=== PATIENT | female | born 1980 | race Caucasian/White ===

== ENCOUNTER → 2020-02-08 10:27 | Outpatient (CLI) | payer OTHER, SELFPAY ==
--- NOTE | ~2020-02-08 | MM_ITS ---
EXAMINATION: MM screening [facility] BI w zahira HISTORY: Baseline screening mammogram TECHNIQUE: Craniocaudal and mediolateral oblique 3-D tomosynthesis images were obtained and synthetic 2-D images were generated. CAD analysis was submitted and interpreted. COMPARISON: None, baseline BREAST PARENCHYMAL COMPOSITION: The breasts are heterogeneously dense, which may obscure small masses . FINDINGS: There appear to be low-density, obscured masses in the upper outer quadrants of both breast s which could reflect cysts. No suspicious calcification or architectural distortion are identified. IMPRESSION: 1. Low-density masses in the upper outer quadrant of the breasts. 2. Additional mammographic views and possible breast ultrasound are recommended to evaluate for malig chichi and establish a baseline given that this is the first mammographic examination. BI-RADS Category 0: Incomplete: Needs additional imaging evaluation. Reviewed, dictated and finalized at location A. IMPRESSION: 1. Low-density masses in the upper outer quadrant of the breasts. 2. Additional mammographic views and possible breast ultrasound are recommended to evaluate for malignancy and establish a baseline given that this is the fir st mammographic examination. BI-RADS Category 0: Incomplete: Needs additional imaging evaluation.
== END ==
PROVIDERS: Visit Provider Obstetrics & Gynecology
DX: Z12.31 Encounter for screening mammogram for malignant neoplasm of breast (principal); R92.8 Other abnormal and inconclusive findings on diagnostic imaging of breast
CPT/HCPCS: 77063; 77067

== ENCOUNTER → 2020-02-24 09:22 | Outpatient (CLI) | payer OTHER, SELFPAY ==
--- NOTE | ~2020-02-24 | MMUS_ITS ---
EXAMINATION: MM diagnostic mammo BI, US breast BI limited HISTORY: Follow-up breast asymmetries TECHNIQUE: Additional 3-D tomosynthesis images of the breasts were performed and synthetic 2-D images were generated. CAD analysis was submitted and interpreted. High resolution bilateral breast ultraso und was performed. COMPARISON: 02/08/2020 BREAST PARENCHYMAL COMPOSITION: The breasts are heterogenously dense, which may obscure small masses. FINDINGS: MAMMOGRAPHIC FINDINGS: There are persistent nodular asymmetries in the lateral aspect of both breasts, although no discrete architectural distortion or suspicious calcifications. There is a 9 mm circumscribed mass in the uppe r outer quadrant of the right breast. There are 2 partially obscured masses in the upper outer quadra nt of the left breast. ULTRASOUND: Right breast ultrasound: At 11:00, 6 cm from the nipple, there is a cluster of microcysts, largest measuring 4 mm. At 10:00, 2 cm from the nipple there is a 6 mm cyst. At 10:00, 4 cm from the nipple, there is a 7 mm complicated cysts. At 9:00, 1 cm from the nipple, there is a 4 mm cyst. Left breast ultrasound: At 12:00, 4 cm from the nipple, there is a 6 mm complicated cyst. At 12:00, 3 cm from the nipple, the re is a 7 mm cyst. At 1:00, 2 cm from the nipple, there is a 3 mm cyst. At 2:00, 6 cm from the nipple , there is a 5 mm cyst. At 2:00, 4 cm from the nipple there is a 4 mm cyst. At 4:00, 2 cm from the ni pple, there is a cluster of cysts. IMPRESSION: 1. Multiple benign bilateral breast cysts corresponding to masses and asymmetry seen on mammogram. No evidence for malignancy in either breast. 2. Routine yearly screening mammogram and regular clinical breast examination are recommended. BI-RADS Category 2: Benign finding(s). Reviewed, dictated and finalized at location A. IMPRESSION: 1. Multiple benign bilateral breast cysts corresponding to masses and asymmetry seen on mammogram. No evidence for malignancy in either breast. 2. Routine yearly screening mammogram and regular clinical breast examination a re recommended. BI-RADS Category 2: Benign finding(s).
== END ==
PROVIDERS: Visit Provider Obstetrics & Gynecology
DX: R92.8 Other abnormal and inconclusive findings on diagnostic imaging of breast (principal)
CPT/HCPCS: 76642; 77066

== ENCOUNTER 2020-03-18 11:20 | Emergency (ER) | payer OTHER, SELFPAY ==
[2020-03-18 11:31] VITALS: BP 120/64; PULSE 84; RESP 20; TEMP 37.1; O2SAT 100
--- NOTE | 2020-03-18 12:07 | ED.URI ---
HPI - URI/Sore Throat General Chief Complaint: Upper Respiratory Infection Stated Complaint: upper respiratory infection Source: patient Mode of arrival: ambulatory Limitations: no limitations History of Present Illness HPI Narrative: Patient is a 39-year-old female who presents complaining of cough, congestion, sinus pressure, sinus drainage and sore throat intermittently x3 weeks, increasing over the past 7 to 10 days. She reports taking Flonase, Claritin-D, and Benadryl nightly for the past 2 weeks without relief. Patient had COVID testing earlier in the week which is negative. She was unable to follow-up with PCP because they needed COVID test results prior to seeing her in office. Patient denies fever, nausea, vomiting or diarrhea. She denies significant medical history. MD elicited complaint: sinus pain Related Data Home Medications Medication Instructions Recorded Confirmed esomeprazole magnesium 40 mg 40 mg PO DAILY 06/24/19 03/18/20 capsule,delayed release Allergies Allergy/AdvReac Type Severity Reaction Status Date / Time Sulfa (Sulfonamide Allergy Unknown Unknown Verified 03/18/20 11:57 Antibiotics) Review of Systems Review of Systems: Narrative: CONSTITUTIONAL: Denies fever, chills, or sweats. EYES: Denies visual changes, redness, or discharge. ENT: Reports rhinorrhea, congestion, sore throat, and facial pressure CARDIOVASCULAR: Denies chest pain, palpitations, or edema. RESPIRATORY: Reports cough, denies dyspnea. GASTROINTESTINAL: Denies abdominal pain, nausea, vomiting, or diarrhea. GENITOURINARY: Denies dysuria or hematuria. SKIN: Denies rash or itching. MUSCULOSKELETAL: Denies back pain, joint pain, or myalgia. NEUROLOGIC: Denies headache, numbness, dizziness, or weakness. PSYCHIATRIC: Denies anxiety or depression. FOR[facility]LY [facility] Past Medical History Medical History Dilatation of esophagus GERD (gastroesophageal reflux disease) Surgical History Surgical History H/O section History of tonsillectomy Family History Family History Father Hypertension Grandparent Carcinoma of colon Diabetes mellitus Social History Social History (Reviewed 10/03/20 @ 12:11 by TIEN Edwards Smoking status: Never smoker Second hand tobacco smoke exposure: No Alcohol intake: current Exam Narrative: Exam Narrative: GENERAL: Well-appearing, well-nourished, and in no acute distress. HEAD: Normocephalic, atraumatic. EYES: EOMI. No redness or drainage. Conjunctiva are normal. ENT: Mucous membranes pink and moist. Positive rhinorrhea. Frontal and maxillary sinus tenderness with palpation. TMs normal bilaterally. Throat mild erythema. Uvula midline. NECK: AROM. Supple. No lymphadenopathy. CHEST: No respiratory distress. Clear to auscultation. HEART: Regular rate and rhythm. No murmur appreciated. Normal peripheral pulses. EXTREMITIES: Normal range of motion. No edema. SKIN: Warm, dry, no rash. NEURO: No focal deficits. Alert and oriented x3. Gait steady. PSYCH: Normal affect. No signs of depression or anxiety. Course Vital Signs Vital signs: Vital Signs Temperature 37.1 C 03/18/20 11:31 Pulse Rate 84 03/18/20 11:31 Respiratory Rate 20 03/18/20 11:31 Blood Pressure 120/64 03/18/20 11:31 Pulse Oximetry 100 03/18/20 11:31 Temperature 37.1 C 03/18/20 11:31 Pulse Rate 84 03/18/20 11:31 Respiratory Rate 20 03/18/20 11:31 Blood Pressure 120/64 03/18/20 11:31 Pulse Oximetry 100 03/18/20 11:31 Reviewed MDM - URI/Sore Throat MDM Narrative Medical decision making narrative: Patient most likely has bacterial sinusitis, patient has tried [id number] treatments for the past 3 weeks without relief. Patient to continue on Flonase, Claritin and Benadryl. Patient to be started
== END 2020-03-18 12:22 | disposition home or self-care (01) ==
PROVIDERS: Emergency Provider Nurse Practitioner; PCP Internal Medicine
DX: J01.00 Acute maxillary sinusitis, unspecified (principal); K21.9 Gastro-esophageal reflux disease without esophagitis
CPT/HCPCS: 99213; G0463

== ENCOUNTER → 2021-04-12 12:28 | Outpatient (CLI) | payer OTHER, SELFPAY ==
--- NOTE | ~2021-04-12 | MM_ITS ---
EXAMINATION: MM screening [facility] BI w zahira HISTORY: Screening mammogram TECHNIQUE: Craniocaudal and mediolateral oblique 3-D tomosynthesis images were obtained and synthetic 2-D images were generated. Bilateral rotated lateral CC views. CAD analysis was submitted and interp reted. COMPARISON: 02/24/2020 bilateral diagnostic mammogram and Limited bilateral breast ultrasound bilateral screening mammogram BREAST PARENCHYMAL COMPOSITION: The breasts are heterogeneously dense, which may obscure small masses . FINDINGS: There is no evidence of suspicious mass, calcification, or architectural distortion to sugg est malignancy in either breast. There has been no suspicious interval change. IMPRESSION: 1. No mammographic evidence of malignancy. 2. Recommend routine screening mammography in one year. BI-RADS Category 1: Negative Reviewed, dictated and finalized at location A.
== END ==
PROVIDERS: Visit Provider Obstetrics & Gynecology
DX: Z12.31 Encounter for screening mammogram for malignant neoplasm of breast (principal)
CPT/HCPCS: 77063; 77067

== ENCOUNTER → 2022-06-11 13:35 | Outpatient (CLI) | payer OTHER, SELFPAY ==
--- NOTE | ~2022-06-11 | MM_ITS ---
EXAMINATION: MM screening [facility] BI w zahira HISTORY: Screening mammogram TECHNIQUE: Craniocaudal and mediolateral oblique 3-D tomosynthesis images were obtained and synthetic 2-D images were generated. Bilateral rotated lateral CC views. CAD analysis was submitted and interp reted. COMPARISON: 04/12/2021 bilateral screening mammogram 02/24/2020 bilateral diagnostic mammography and Limited bilateral breast ultrasound examination 02/08/2020 bilateral screening mammogram BREAST PARENCHYMAL COMPOSITION: The breasts are heterogeneously dense, which may obscure small masses . FINDINGS: There is suggestion of new or enlarging mass density is of each breast. Bilateral diagnostic mammogra phy and breast ultrasound examination are recommended. IMPRESSION: 1. Possible new or enlarging mass densities of each breast 2. Bilateral diagnostic mammography and breast ultrasound examination are recommended BI-RADS Category 0: Incomplete: Needs additional imaging evaluation. Reviewed, dictated and finalized at location A. R QUALITY TESTER IMPRESSION: 1. Possible new or enlarging mass densities of each breast 2. Bilateral diagnostic mammography and breast ultrasound examination are recom mended BI-RADS Category 0: Incomplete: Needs additional imaging evaluation.
== END ==
PROVIDERS: PCP Internal Medicine; Visit Provider Obstetrics & Gynecology
DX: Z12.31 Encounter for screening mammogram for malignant neoplasm of breast (principal); R92.8 Other abnormal and inconclusive findings on diagnostic imaging of breast
CPT/HCPCS: 77063; 77067

== ENCOUNTER → 2022-07-04 09:02 | Outpatient (CLI) | payer OTHER, SELFPAY ==
--- NOTE | ~2022-07-04 | MMUS_ITS ---
EXAMINATION: MM diagnostic [facility] BI w zahira, US breast LT limited HISTORY: Bilateral breast masses on screening mammogram TECHNIQUE: Additional 3-D tomosynthesis images of the breasts were performed and synthetic 2-D images were generated. CAD analysis was submitted and interpreted. High resolution limited bilateral breast ultrasound was performed. COMPARISON: 06/11/2022, 04/12/2021, 02/24/2020, 02/08/2020 FINDINGS: MAMMOGRAPHIC FINDINGS: There is a return to baseline fibroglandular appearance with spot compression of the right breast in the area questioned on screening mammogram. There is a 15 mm round, obscured, equal density mass in t he middle third of the upper-outer quadrant of the breast at the 1:00 location 3 cm from the nipple. No suspicious calcification or architectural distortion are identified. ULTRASOUND: There is a 14 mm cyst at the 1:00 location 2 cm from the nipple corresponding to mammographic finding in question. Additional small cysts at the 1:00 location measure 5 mm and 11 mm. IMPRESSION: 1. No mammographic or sonographic evidence of malignancy. 2. Recommend routine screening mammography in one year. BI-RADS Category 2: Benign finding(s). Reviewed, dictated and finalized at location A. ACCOUNTS CLERK IMPRESSION: 1. No mammographic or sonographic evidence of malignancy. 2. Recommend routine screening mammography in one year. BI-RADS Category 2: Benign finding(s).
== END ==
PROVIDERS: PCP Internal Medicine; Visit Provider Obstetrics & Gynecology
DX: R92.8 Other abnormal and inconclusive findings on diagnostic imaging of breast (principal)
CPT/HCPCS: 76642; 77062; 77066; G0279

== ENCOUNTER 2023-10-03 14:30 | Outpatient (CLI) | payer OTHER, SELFPAY ==
--- NOTE | ~2023-10-03 | MM_ITS ---
EXAMINATION: MM screening [facility] BI w zahira HISTORY: Screening TECHNIQUE: Craniocaudal and mediolateral oblique 3-D tomosynthesis images were obtained and synthetic 2-D images were generated. CAD analysis was submitted and interpreted. COMPARISON: Comparison to multiple prior studies sequentially, with oldest reviewed study dated 03/17. BREAST PARENCHYMAL COMPOSITION: Not dense: There are scattered areas of fibroglandular density. FINDINGS: There are developing asymmetries bilaterally in the upper outer quadrants. There are no dis crete areas of architectural distortion or calcifications. IMPRESSION: 1. Developing bilateral breast asymmetries. 2. Additional mammographic views and possible breast ultrasound are recommended. BI-RADS Category 0: Incomplete: Needs additional imaging evaluation. Reviewed, dictated and finalized at location B. IMPRESSION: 1. Developing bilateral breast asymmetries. 2. Additional mammographic views and possible breast ultrasound are recommended . BI-RADS Category 0: Incomplete: Needs additional imaging evaluation.
== END 2023-10-03 14:31 ==
LOC: MICIMG 14:31
PROVIDERS: PCP Obstetrics & Gynecology; Visit Provider Obstetrics & Gynecology
DX: Z12.31 Encounter for screening mammogram for malignant neoplasm of breast (principal); N64.89 Other specified disorders of breast
CPT/HCPCS: 77063; 77067

== ENCOUNTER 2023-11-04 07:58 | Outpatient (CLI) | payer OTHER, SELFPAY ==
--- NOTE | ~2023-11-04 | MMUS_ITS ---
EXAMINATION: MM diagnostic [facility] BI w zahira, US breast BI limited HISTORY: Follow-up bilateral breast asymmetries TECHNIQUE: Additional 3-D tomosynthesis images of the breasts were performed and synthetic 2-D images were generated. CAD analysis was submitted and interpreted. High resolution limited bilateral breast ultrasound was performed. COMPARISON: 10/03/2023 BREAST PARENCHYMAL COMPOSITION: Dense: The breasts are heterogeneously dense, which may obscure small masses FINDINGS: MAMMOGRAPHIC FINDINGS: There are persistent masses located laterally in both breasts which are obscured by dense fibroglandu lar tissue. ULTRASOUND: Limited right breast ultrasound: There are multiple simple and complicated cysts of the right breast. There is a cluster of microcysts at 10:00, 6 cm from the nipple measuring 1 cm. At 10:00, 8 cm from the nipple there is an irregular shaped hypoechoic mass without posterior features measuring 13 x 7 x 13 mm. No internal vascularity. Limited left breast ultrasound: There are multiple simple and complicated cysts of the left breast. A t 2:00, 9 cm from the nipple there is an irregular shaped hypoechoic mass measuring 1.2 cm which appe ars to be partially cystic. No internal vascularity. No significant posterior features. At 5:00, 3 cm from the nipple, there is a slightly irregular shaped 6 mm mass with internal vascularity and supervisor tank cleaning ior features. At 6:00 near the areola there is an irregular shaped. Hypoechoic mass which is partiall y cystic with internal vascularity measuring 7 mm. IMPRESSION: 1. Suspicious bilateral breast masses including in the right breast at 10:00, 8 cm from the nipple an d left breast masses located at 2:00, 9 cm from the nipple, 5:00, 3 cm from the nipple and 6:00 near the areola 2. Ultrasound-guided bilateral breast biopsies recommended. BI-RADS category 4, suspicious findings. Reviewed, dictated and finalized at location A. IMPRESSION: 1. Suspicious bilateral breast masses including in the right breast at 10:00, 8 cm from the nipple and left breast masses located at 2:00, 9 cm from the nippl e, 5:00, 3 cm from the nipple and 6:00 near the areola 2. Ultrasound-guided bilateral breast biopsies recommended. BI-RADS category 4, suspicious findings.
== END 2023-11-04 07:59 ==
LOC: MICIMG 07:59
PROVIDERS: PCP Obstetrics & Gynecology; Visit Provider Obstetrics & Gynecology
DX: R92.8 Other abnormal and inconclusive findings on diagnostic imaging of breast (principal)
CPT/HCPCS: 76642; 77062; 77066; G0279

== ENCOUNTER 2024-10-01 07:45 | Outpatient (CLI) | payer OTHER, SELFPAY ==
--- NOTE | ~2024-10-01 | US_ITS ---
EXAMINATION: US thyroid DATE: 10/01/2024 08:16 INDICATION: Nontoxic multinodular goiter. TECHNIQUE: Multiple ultrasound images of the thyroid were obtained. COMPARISON: None. FINDINGS: The right thyroid lobe measures 4.4 x 1.2 x 1.3 cm. Within the upper pole of the right lobe of the thyroid gland is a 5.5 x 3.0 x 3.3 mm nodule: Composition -solid or almost completely solid (2) Echogenicity -isoechoic (1) Shape - wider than tall Margin - smooth Echogenic foci - none. = TR3 Mildly suspicious Greater than or equal to 1.5 cm: Follow-up Greater than or equal to 2.5 cm: FNA The left thyroid lobe measures 4.7 x 1.4 x 1.6 cm. Multiple nodules are present within the left lobe of the thyroid gland. The largest is described below. Within the mid pole of the left lobe of the thyroid gland is a 11.5 x 8.4 x 8.2 mm nodule: Composition -mixed cystic and solid (1) Echogenicity -hypoechoic (2) Shape - wider than tall Margin -ill-defined Echogenic foci - none. = TR3 Mildly suspicious Greater than or equal to 1.5 cm: Follow-up Greater than or equal to 2.5 cm: FNA The isthmus measures 0.3cm in anterior to posterior dimension. There is normal echotexture and echogenicity throughout the thyroid gland. No additional discrete nodules identified. Normal vascular flow is present. IMPRESSION: TR3 nodules detected bilaterally, none meeting size criteria for either follow-up or FNA. While yearly follow-up is not recommended, it may be performed. Reviewed, dictated and finalized at location A. IMPRESSION: TR3 nodules detected bilaterally, none meeting size criteria for either follow- up or FNA. While yearly follow-up is not recommended, it may be performed.
== END 2024-10-01 07:46 | disposition home or self-care (01) ==
LOC: MICIMG 07:46
PROVIDERS: PCP Internal Medicine; Visit Provider Obstetrics & Gynecology
DX: E04.9 Nontoxic goiter, unspecified (principal)
CPT/HCPCS: 76536